=== PATIENT | female | born 1970 | race Caucasian/White ===

== ENCOUNTER 2020-02-09 07:16 | Day surgery (SDC) | payer BC, MEDICAID ==
[~2020-02-09 07:16] MED LIST: Lactated Ringers 1,000 ML IV SCH; Sodium Chloride 0.9% 10 ML Syringe FLUSH PRN
[2020-02-09] MEDS ORDERED: Propofol 200 MG/20 ML SDV ONE (07:23)
[2020-02-09] MEDS ORDERED: fentaNYL 100 MCG/2 ML SDV ONE (07:23)
--- NOTE | 2020-02-09 15:25 | OR ---
PREOPERATIVE DIAGNOSIS: Intermittent rectal bleeding. POSTOPERATIVE DIAGNOSIS: Colon polyp x1. PROCEDURE PERFORMED: Total flexible colonoscopy. ANESTHESIA: MAC anesthesia. COMPLICATIONS: None. BLOOD LOSS: Minimal. FINDINGS: 1. Sigmoid polyp, 3 mm, cold forceps. 2. No masses, AVMs, or diverticular disease seen that could explain bleeding. She did have mild internal hemorrhoids. START TIME: 0853. CECUM TIME: 0859. STOP TIME: 0914. BOWEL PREP: [place] class 3. INDICATIONS FOR PROCEDURE: Aida Howard is a 49-year-old female who has had intermittent rectal bleeding for about 1 year. She is also overdue to start her colorectal cancer screening. She tells me the rectal bleeding has been intermittent and not a large amount. She has never had a colonoscopy before. She has no family history of colon cancer. DETAILS OF PROCEDURE: After informed consent was obtained, the patient was brought to the procedure room and placed in the left lateral decubitus position. MAC anesthesia was induced by Anesthesia colleagues without incident. The colonoscope with an Endocuff device was introduced into the rectum and advanced all the way to the cecum. The appendiceal orifice and ileocecal valve were photographed. The endoscope was then slowly withdrawn. A retroflexed view was obtained. No pathology was identified other than what is mentioned in the above findings section. PATHOLOGY: Colon, sigmoid polyp Benign colonic mucosa Recommend repeat screening colonoscopy in 10 years. RKM: 02/09/2020 09:20:25 MODL: 02/09/2020 14:49:26 /[id number] MTDD
--- NOTE | 2020-02-14 10:31 | LETTER ---
02/11/2020 RE: AIDA HOWARD : 1970 Aida Howard [address] [place] [id number] Dear Ms. Howard: I am writing to inform you of the pathology results from your recent colonoscopy. We took 1 biopsy, which was felt to be a polyp. However, the pathologist found no evidence of polypoid tissue in this biopsy. This is good news. In addition, we did not identify any reasons for your rectal bleeding that you have been having. You did have some mild internal hemorrhoids, which may be the source of this. However, we did not see anything concerning for colon cancer to explain your bleeding. You will need another screening colonoscopy in 10 years. Warmest regards,
== END 2020-02-09 10:55 | disposition home or self-care (01) ==
LOC: VM.SDS 07:16
PROVIDERS: ATTEND Student in an Organized Health Care Education/Training Program
DX: K63.5 Polyp of colon (principal); K64.8 Other hemorrhoids; F41.8 Other specified anxiety disorders; K62.5 Hemorrhage of anus and rectum; K21.9 Gastro-esophageal reflux disease without esophagitis; F98.8 Other specified behavioral and emotional disorders with onset usually occurring in childhood and adolescence; Z01.812 Encounter for preprocedural laboratory examination; Z20.828 Contact with and (suspected) exposure to other viral communicable diseases; Z79.899 Other long term (current) drug therapy; Z88.6 Allergy status to analgesic agent
CPT/HCPCS: 00811; J2704; J3010; J7120; U0002

== ENCOUNTER 2022-04-18 20:07 | Emergency (ER) | payer MEDICAID ==
[2022-04-18] MEDS ORDERED: cloNIDine 0.1 MG Tab PO ONE (20:51)
== END 2022-04-18 21:03 | disposition home or self-care (01) ==
LOC: VM.ED 20:07
DX: F41.9 Anxiety disorder, unspecified (principal); R53.83 Other fatigue; F51.4 Sleep terrors [night terrors]; Z88.8 Allergy status to other drugs, medicaments and biological substances; Z88.5 Allergy status to narcotic agent; Z79.899 Other long term (current) drug therapy
CPT/HCPCS: 99284; A9270-GY